=== PATIENT | male | born 1990 | race Caucasian/White ===

== ENCOUNTER 2018-03-20 12:38 | Emergency (ER) | payer MEDICAID ==
[2018-03-20] MEDS: KETOROLAC 30 MG INJ IM (14:36)
[2018-03-20] MEDS: METHOCARBAMOL 750 MG TAB PO (14:53)
== END 2018-03-20 16:19 | disposition home or self-care (01) ==
LOC: FTE 12:38
DX: M54.5 Low back pain (principal)
CPT/HCPCS: 72131; 96372; 99285-25